=== PATIENT | female | born 1955 | race Hispanic/Latino ===

== ENCOUNTER → 2023-11-27 | Outpatient (CLI) | payer MEDICARE | END | disposition home or self-care (01) | LOC: SHCH 13:46 | PROVIDERS: ATTEND Internal Medicine | DX: I35.1 Nonrheumatic aortic (valve) insufficiency (principal); R07.9 Chest pain, unspecified | CPT/HCPCS: 93306 ==

== ENCOUNTER 2024-08-22 05:41 | Observation (INO) | payer MEDICARE ==
[2024-08-19 09:49] LABS: BASOPHILS # (AUTO) 0.05 K/uL (0.00-0.20); BASOPHILS % (AUTO) 0.6 % (0.0-5.0); EOSINOPHILS # (AUTO) 0.26 K/uL (0.00-0.70); EOSINOPHILS % (AUTO) 3.1 % (0.0-8.0); HEMATOCRIT 40.3 % (36-48); IMMATURE GRANULOCYTE ABSOLUTE 0.04 K/uL (0-1); LYMPHOCYTES # (AUTO) 2.2 K/uL (1.0-4.8); LYMPHOCYTES % (AUTO) 26.2 % (21.0-51.0); MEAN CORPUSCULAR HEMOGLOBIN 28.4 pg (27.0-33.0); MEAN CORPUSCULAR HGB CONC 31.8 g/dL (32.0-36.0); MEAN CORPUSCULAR VOLUME 89.6 fL (79-99); MONOCYTES # (AUTO) 0.9 K/uL (0.1-1.0); MONOCYTES % (AUTO) 10.2 % (3.0-13.0); NEUTROPHILS % (AUTO) 59.4 % (40.0-77.0); PLATELET COUNT (AUTO) 355 K/uL (130-400); RED CELL DISTRIBUTION WIDTH 12.6 % (11.0-15.5); WHITE BLOOD COUNT (AUTO) 8.4 K/uL (4.8-10.8)
[2024-08-19 09:57] LABS: CREATININE 0.8 mg/dL (0.5-1.0); POTASSIUM 4.9 mmol/L (3.5-5.1)
[2024-08-19 10:01] LABS: INR 0.98 (0.85-1.15); PROTHROMBIN TIME 10.6 SEC (9.6-11.6)
[2024-08-19 10:03] LABS: PARTIAL THROMBOPLASTIN TIME 27.1 SEC (26.3-35.5)
[2024-08-19 10:07] VITALS: BP 175/60; PULSE 63; RESP 16; TEMP 97.2
[2024-08-19 10:29] LABS: APPEARANCE,URINE CLEAR (CLEAR); BILIRUBIN,URINE NEGATIVE (NEGATIVE); COLOR,URINE COLORLESS (YELLOW); GLUCOSE, URINE (UA) NEGATIVE (NEGATIVE); KETONES,URINE NEGATIVE (NEGATIVE); LEUKOCYTE ESTERASE ,URINE NEGATIVE Leu/uL (NEGATIVE); NITRATE,URINE NEGATIVE (NEGATIVE); OCCULT BLOOD,URINE SMALL (NEGATIVE); PH,URINE 5.5 (5.0-8.0); PROTEIN,URINE NEGATIVE (NEGATIVE); UROBILINOGEN,URINE 0.2 mg/dL (0.2-1.0)
[2024-08-19 10:31] LABS: B-TYPE NATRIURETIC PEPTIDE 20 pg/mL (0-100)
[2024-08-19 10:32] LABS: ADD UA MICROSCOPIC NO
[2024-08-22] VITALS (29 sets, daily range): BP systolic 112–159; BP diastolic 51–80; PULSE 48–71; RESP 14–20; TEMP 97.2–98; O2SAT 96
[~2024-08-22] VITALS: Ht 167.6 cm; Wt 61.0 kg
[~2024-08-22 05:41] MED LIST: ASPI-1197 PO; ATOR40TA71 PO; DONE5TAB33 PO; IBUP-2070 PO; LISI20TA24 PO; MEMA10TA21 PO; METF-444 PO; METO-408 PO; PANT40TA54 PO
[2024-08-22] MEDS: 0.9%NACL 1000ML 1,000 ML IV ONE (06:50)
[2024-08-22] MEDS ORDERED: VERAPAMIL HCL 2.5 MG/ML VIAL ONE (07:10)
[2024-08-22] MEDS ORDERED: IOHEXOL 350 MG/ML 100ML INFUS..BTL IV ONE (07:10)
[2024-08-22] MEDS ORDERED: LIDOCAINE HCL 400MG/20ML VIAL ONE (07:10)
[2024-08-22] MEDS ORDERED: HEParin-NS 1,000 UNIT/500 ML 1,000 ML IV ONE (07:11)
[2024-08-22] MEDS ORDERED: HEParin 10,000 UNIT/10ML (1,000 UNIT/ML) VIAL ONE (07:11)
[2024-08-22] MEDS ORDERED: NITROGLYCERIN 50MG VIAL ONE (07:11)
[2024-08-22] MEDS ORDERED: BIVALIRUDIN 250 MG/VIAL IV ONE (07:16)
[2024-08-22] MEDS ORDERED: MIDAZOLAM HCL 1 MG/ML 2ML VIAL ONE ×2 (07:31→08:23)
[2024-08-22] MEDS ORDERED: FENTanyl CITRate PF 50 MCG/1 ML 2ML VIAL ONE (07:31)
[2024-08-22] MEDS ORDERED: IOHEXOL-350 75 ML VIAL IV ONE (08:15)
[2024-08-22] MEDS ORDERED: cloPIDOgrel 300MG TAB ONE (08:32)
[2024-08-22] MEDS ORDERED: ASPIRIN 325MG EC TAB PO ONE (08:32)
[2024-08-22] MEDS ORDERED: hydrALAZine 20MG/ML VIAL IV PRN (09:00)
[2024-08-22] MEDS: 0.9%NACL 1000ML 1,000 ML IV SCH (09:00)
[2024-08-22] MEDS ORDERED: NITROGLYCERIN 0.4 MG SL TAB SL PRN ×2 (11:00→19:30)
[2024-08-22] MEDS: NITROGLYCERIN 0.4 MG SL TAB SL ONE (11:08)
[2024-08-22] MEDS: NITROGLYCERIN 1GM OINT 1 INCH/1GM TD ONE ×2 (13:41→15:16)
[2024-08-22] MEDS: MEMANtine HCL 5 MG TABLET PO SCH (21:31)
[2024-08-22] MEDS: atorVAStatin 40 MG TABLET PO SCH (21:31)
[2024-08-22] MEDS: ASPIRIN 81MG CHEW TAB PO SCH (21:32)
[2024-08-22] MEDS: doNEPEZil HCL 5 MG TAB PO SCH (21:32)
[2024-08-23 00:25] VITALS: BP 129/50; PULSE 70; RESP 22; TEMP 97.8
[2024-08-23 01:30] VITALS: BP 125/59; PULSE 75; RESP 20
[2024-08-23 03:24] LABS: BASOPHILS # (AUTO) 0.04 K/uL (0.00-0.20); BASOPHILS % (AUTO) 0.4 % (0.0-5.0); EOSINOPHILS # (AUTO) 0.28 K/uL (0.00-0.70); EOSINOPHILS % (AUTO) 2.9 % (0.0-8.0); HEMATOCRIT 34.5 % (36-48); IMMATURE GRANULOCYTE ABSOLUTE 0.05 K/uL (0-1); LYMPHOCYTES # (AUTO) 2.6 K/uL (1.0-4.8); LYMPHOCYTES % (AUTO) 26.5 % (21.0-51.0); MEAN CORPUSCULAR HEMOGLOBIN 28.7 pg (27.0-33.0); MEAN CORPUSCULAR HGB CONC 32.8 g/dL (32.0-36.0); MEAN CORPUSCULAR VOLUME 87.6 fL (79-99); MONOCYTES # (AUTO) 0.9 K/uL (0.1-1.0); MONOCYTES % (AUTO) 9.5 % (3.0-13.0); NEUTROPHILS # (AUTO) 5.9 K/uL (1.8-7.7); NEUTROPHILS % (AUTO) 60.2 % (40.0-77.0); PLATELET COUNT (AUTO) 289 K/uL (130-400); RED BLOOD CELL COUNT(AUTO) 3.94 MIL/uL (4.00-5.50); RED CELL DISTRIBUTION WIDTH 12.7 % (11.0-15.5); WHITE BLOOD COUNT (AUTO) 9.8 K/uL (4.8-10.8)
[2024-08-23 03:25] VITALS: BP 138/83; PULSE 65; RESP 20; TEMP 97.9
[2024-08-23 03:52] LABS: CREATININE 0.8 mg/dL (0.5-1.0); POTASSIUM 3.9 mmol/L (3.5-5.1)
[2024-08-23 07:00] VITALS: BP 142/54; PULSE 63; RESP 18; TEMP 98
[2024-08-23 07:47] VITALS: O2SAT 99
[2024-08-23] MEDS: metOPROLol sucCINATE 25 MG TAB.SR.24H PO SCH (09:18)
[2024-08-23] MEDS: cloPIDOgrel 75MG TAB PO SCH (09:18)
[2024-08-23] MEDS: PANTOPrazole 40 MG TAB DR PO SCH (09:35)
[2024-08-23] MEDS ORDERED: DONE10TA43 PO (10:11)
== END 2024-08-23 10:44 | disposition home or self-care (01) ==
LOC: DAH 05:41 → DAHIP 05:42 → 2DH 17:30
PROVIDERS: ADMIT Internal Medicine; ATTEND Internal Medicine
DX: I25.119 Atherosclerotic heart disease of native coronary artery with unspecified angina pectoris (principal); I11.0 Hypertensive heart disease with heart failure; I50.9 Heart failure, unspecified; F03.90 Unspecified dementia, unspecified severity, without behavioral disturbance, psychotic disturbance, mood disturbance, and anxiety; I38 Endocarditis, valve unspecified; I77.9 Disorder of arteries and arterioles, unspecified; Z88.8 Allergy status to other drugs, medicaments and biological substances; Z88.0 Allergy status to penicillin; Z79.899 Other long term (current) drug therapy
CPT/HCPCS: 80048 ×2; 83880; 85025 ×2; 85610; 85730; 81003; 36415 ×2; 71045; 93005 ×5; 93458; 84484 ×3; 82948 ×4; C1769 ×2; C1887 ×2; C1725; C1874; C1894; A4649; Q9965 ×2; G0378 ×23; J3010; J3490 ×3; J7030; J1644 ×2; J2250 ×2; Q9967; A4215; A4223 ×3; A4222; A4221; A4663; A4216; A4606; C9600; 99156; 99157; J0583